=== PATIENT | female | born 1965 | race Caucasian/White ===

== ENCOUNTER 2016-06-05 10:37 | Emergency (ER) | payer OTHER, SELFPAY ==
[2016-06-05 10:57] VITALS: TEMP 98.9; BMI 36.8
--- NOTE | 2016-06-05 11:54 | EDPRACDOC ---
- General Information Chief Complaint: Chest Wall Pain Stated Complaint: LUMP ON CHEST Time Seen by Provider: 06/05/16 11:06 Information Source: Patient Mode of Arrival: Car Home Medications: Home Medications No Home Medications 06/05/16 Allergies/Adverse Reactions: Allergies Allergy/AdvReac Type Severity Reaction Status Date / Time No Known Allergies Allergy Verified 06/05/16 10:57 - History of Present Illness Onset: MONTHS HPI: PT PRESENTS WITH A MASS NOTED TO HER STERNUM. STATES SHE WAS DOING PLASMA DONATION SEVERAL DAYS AGO WHEN THIS WAS NOTED AND WAS TOLD TO HAVE AN EVALUATION. DENIES PAIN OR SHORTNESS OF BREATH. Chest Wall Injury Location: Reports: Sternal Context: Denies: MVC, Blunt Trauma, Sporting, Altercation, Fall, Work-Related, Other Tetanus Up To Date?: No Pain Quality: Reports: None Pain Severity: Reports: None Pain Worsens With: Reports: Nothing Shortness of Breath: None Associated Signs and Symptoms: Reports: None ED Past Medical History - History Reviewed Yes Nurses notes reviewed and agree except as marked - Patient Medical History Psychological History: Denies: Depression Surgical History: Reports: Appendectomy, Cholecystectomy, Tonsillectomy/ Adnoidectomy - Social Medical History Smoking Status: Heavy tobacco smoker (5 or more cigarettes/day or daily pipe/ cigar) EDM Review of Systems - Review of Systems ROS Negative Except as Marked: Yes All systems reviewed and were negative except as marked - Physical Exam Constitutional: Alert Oriented to: Time, Person, Place Last recorded Vital Signs: Last Vital Signs Temp 98.9 F 06/05/16 10:48 Pulse 91 06/05/16 10:48 Resp 18 06/05/16 10:48 BP 148/86 06/05/16 10:48 Pulse Ox 97 06/05/16 10:48 Oxygen Pulse Oxygen Saturation 97 O2 Device Room Air Oxygen Flow Rate Fraction of Inspired Oxygen ( FIO2) - HEENT Head: Normal ( normocephalic) Eye Exam: Normal (PERRL, EOMI, Sclera white) Oropharynx: Normal (Pharynx:Moist without exudate,Gums-no swelling) Tympanic Membrane: Normal Nose: No Symptoms Reported (septum midline) Neck: Normal (FROM, trachea at midline) - Respiratory/Cardiovascular Respiratory: Normal - CTA (BBS clear to auscultation without adventitious sounds ) Cardiovascular: Normal (RRR without murmur, gallop or rub) Respiratory/Cardiovascular Comment: GRAPEFRUIT SIZE MASS NOTED TO STERNUM. AREA SOFT, NON-PAINFUL. - GI Auscultation: Normal (NABS) Palpation: Normal (Soft,No rebound or guarding, non distended) Tenderness: Non tender Santana's Sign: Negative - Musculoskeletal Back: Normal (Non-Tender) Extremities: Normal (Normal tone, Pulses 2+ No cyanosis or edema, FROM) - Integumentary Skin: Normal, Warm, Dry Lymphatics: Normal (no adenopathy) - Neurologic Memory Impaired: Normal Motor Function: Normal (Normal tone, Pulses 2+ No cyanosis or edema, FROM) Cranial Nerve: Normal (CN II-X11 intact sensation, strength 5/5) Cerebellar: Normal Mood Description: Normal Perception: Normal ED Chest Wall Pain Exam - Chest Wall Pain Chest: Other (GRAPEFRUIT SIZE MASS NOTED TO STERNUM, SOFT, NON-PAINFUL) - Differential Diagnosis Other Decision Time to Discharge: 12:17 - Departure Disposition: Home Condition: Stable Final Diagnosis: Emphysema of lung Qualifiers: Emphysema type: unspecified Qualified Code(s): J43.9 - Emphysema, unspecified Instructions: Emphysema (ED) Education/Counseling Given To: Patient Education/Counseling Given Regarding: Diagnosis, Treatment, Prognosis, Follow Up Referrals: Lemuel Gallardo MD [Staff Physician] - One Week Prescriptions: No Action No Home Medications 0 NA DIR #0 info Additional Instructions: FOLLOW UP WITH PCP NEXT WEEK. RETURN TO THE ED FOR WORSENING SYMPTOMS OR CONCERNS
--- NOTE | 2016-06-05 12:01 | DIRPT ---
CLINICAL DATA: Palpable abnormality in the midsternal region. EXAM: CHEST 2 VIEW COMPARISON: None. FINDINGS: The cardiac silhouette is within normal limits. There is moderate tortuosity of the thoracic aorta. The pulmonary blake appear normal. There is a large right apical bulla and right upper lobe scarring changes. Other emphysematous changes suspected in the left upper lobe. No infiltrates or effusions. The bony thorax is intact. No obvious sternal lesion. Moderate degenerative changes involving the thoracic spine with a mid thoracic compression deformity. IMPRESSION: Emphysematous change is an basilar scarring atelectasis. No definite infiltrates or effusions. No significant findings. No obvious sternal lesion. Electronically Signed By: Ancelmo Belcher M.D. On: 06/05/2016 11:59
[2016-06-05 13:27] VITALS: BP 146/81; PULSE 94
== END 2016-06-05 12:24 | disposition home or self-care (01) ==
LOC: ED 10:37 → EDMC 12:24
DX: J43.9 Emphysema, unspecified (principal)
CPT/HCPCS: 71020; 99282